=== PATIENT | female | born 1965 | race Caucasian/White ===

== ENCOUNTER 2017-10-07 08:20 | Outpatient (CLI) | payer MEDICAID | END 2017-10-07 23:59 | disposition home or self-care (01) | LOC: 64 CT 08:20 | PROVIDERS: ATTEND Nurse Practitioner | DX: R91.8 Other nonspecific abnormal finding of lung field (principal); R91.1 Solitary pulmonary nodule | CPT/HCPCS: 71250 ==

== ENCOUNTER 2018-02-05 10:25 | Outpatient (CLI) | payer MEDICAID | END 2018-02-05 23:59 | disposition home or self-care (01) | LOC: 64 CT 10:25 | PROVIDERS: ATTEND Nurse Practitioner | DX: R91.1 Solitary pulmonary nodule (principal) | CPT/HCPCS: 71250 ==